=== PATIENT | male | born 1955 | race Caucasian/White ===

== ENCOUNTER 2021-01-09 06:24 | Day surgery (SDC) | payer BC ==
[~2021-01-09] VITALS: Ht 167.6 cm; Wt 68.0 kg
[~2021-01-09 06:24] MED LIST: FLUTICASONE PRO16 GM NS; LIPITOR20 MG; LIPITOR20 MG PO; QVAR7.3 G1 INH; SINGULAIR10 MG PO
--- NOTE | 2021-01-09 08:03 | NUR ---
01/09/21 0803 Pao López 0800- PT TO PACU IN LL POSITION. EYES CLOSED, OPENS EYES BRIEFLY TO VERBAL AND TACTILE STIMULI AND FALLS QUICKLY BACK TO SLEEP. BREATHING EASY AND UNLABORED. SPO2 >95% ON 3L O2 VIA NC.
--- NOTE | 2021-01-09 09:54 | OR ---
[facility] [address] [place], [place] [address] Signed DATE OF OPERATION: 01/09/2021 SURGEON: Cammie Orellana MD PREOPERATIVE DIAGNOSES: 1. Father with colon cancer, age 79. 2. Diverticulosis. POSTOPERATIVE DIAGNOSES: 1. Minimal to moderate pandiverticulosis. 2. Minimal to moderate external hemorrhoids. PROCEDURE: Colonoscopy without biopsy. ESTIMATED BLOOD LOSS: None. INDICATIONS: Jennifer is a 65-year-old gentleman, whose father was diagnosed and of metastatic colon cancer at the age of 79. Jennifer himself has been through five or six previous colonoscopies. His last colonoscopy was in 2015 with myself. We are aware that he has sigmoid diverticulosis. He currently has no lower GI complaints. No prior history of any colon cancer or colon polyps himself. He did have an enlarged prostate in 2016. In the end, he had robotic-assisted radical prostatectomy for his prostate cancer. He said he has done well since that time. In the office, I had given him pamphlets on endoscopy. He understands the nature of that test quite well. There is risk including, but not limited to gas bloating, crampy abdominal pain, bleeding, perforation requiring surgery, and missed diagnosis. He also recalls the need for IV conscious sedation. He has done well with Versed and fentanyl in the past. He had expressed understanding and wished to proceed. PROCEDURE NOTE: Jarad was taken into our endoscopy suite and placed in the left lateral decubitus position. He was given a total of 7 mg of Versed and 150 mcg of fentanyl to cover the case. A digital rectal exam was performed. He does not have minimal to moderate external hemorrhoids. He had good sphincter tone. The prostate gland was absent. No dominant nodules. There seemed to be smooth scar tissue in the prostate bed. The adult colonoscope was then introduced and advanced under direct visualization of camera. It took some extra sedation abdominal compression in order to advance the scope directly Electronically Signed By: CAMMIE ORELLANA MD 01/09/21 0954 PATIENT NAME: JENNIFER RODRIGUEZ OPERATIVE REPORT DATE OF : 55 REPORT #: [id number] PHYSICIAN: CAMMIE ORELLANA MD PCP: FARZANEH MUÑOZ DO REPORT IS CONFIDENTIAL AND NOT TO BE RELEASED WITHOUT AUTHORIZATION [facility] [address] [place], [place] [address] Signed into the cecum itself. His prep was quite excellent. He said it is much better then prep. We could easily see the appendiceal orifice and the ileocecal valve. The scope was then slowly withdrawn. We took pictures throughout for photodocumentation. On this occasion, he did have some diverticula in the right and left colon. They were minimal to moderate in size, minimal to moderate in number, and scattered about. No polyps were noted. The rectum was unremarkable. Upon retroflexion of scope, there was no additional pathology noted above the anal canal. After this, the gas was suctioned out and the colonoscope removed. Jennifer tolerated his procedure quite well. RECOMMENDATIONS: Jennifer can follow up for a repeat colonoscopy in 5 years due to his family history. Cammie Orellana MD ALB/MODL /[id number] cc: DO Cammie Chamberlain MD Copies: FARZANEH MUÑOZ ANDREW L MD ~ Electronically Signed By: CAMMIE ORELLANA MD 01/09/21 0954 PATIENT NAME: JENNIFER RODRIGUEZ OPERATIVE REPORT DATE OF : 55 REPORT #: [id number] PHYSICIAN: CAMMIE ORELLANA MD PCP: FARZANEH MUÑOZ DO REPORT IS CONFIDENTIAL AND NOT TO BE RELEASED WITHOUT AUTHORIZATION
== END 2021-01-09 08:50 | disposition home or self-care (01) ==
LOC: DS 06:24 → OPS 06:24 → DS 06:45 → OPS 08:50
PROVIDERS: ATTEND Colon & Rectal Surgery
PROC: 0DJD8ZZ Inspection of Lower Intestinal Tract, Via Natural or Artificial Opening Endoscopic (ICD-10-PCS; principal; 2021-01-09 06:45)
DX: K57.30 Diverticulosis of large intestine without perforation or abscess without bleeding (principal); K64.4 Residual hemorrhoidal skin tags; J45.909 Unspecified asthma, uncomplicated; E78.00 Pure hypercholesterolemia, unspecified; Z80.0 Family history of malignant neoplasm of digestive organs; Z91.09 Other allergy status, other than to drugs and biological substances
CPT/HCPCS: 99153; G0500; J2250; J3010

== ENCOUNTER 2023-03-28 07:50 | Day surgery (SDC) | payer BC ==
[2023-03-26 08:21] VITALS: BP 1406/65
[~2023-03-28] VITALS: Ht 167.6 cm; Wt 70.5 kg
[~2023-03-28 07:50] MED LIST changes: +MOVE FREE ULTR1 EAC2 PO; +TADALAFIL5 MG PO
[2023-03-28 07:59] VITALS: BP 111/83
--- NOTE | 2023-03-28 09:27 | NUR ---
PT ACCOMPANIED BY . BOTH IN GOOD SPIRITS. EXERCISED MINISTRY OF PRESENCE PT TALKED OF WORK. DECLINED BEDSIDE PRAYER. EXITED ROOM AND PRAYED SILENTLY FOR SUCCESSFUL PROCEDURE AND ANGEL RECOVERY.
--- NOTE | 2023-03-28 10:40 | NUR ---
03/28/23 1040 Sheets,Joyce 1029 PT ARRIVED TO PACU ON 6L VIA JAW THRUST USED TO MAINTAIN AIRWAY WITH ORAL AIRWAY IN PLACE. PT NONAROUSABLE.
--- NOTE | 2023-03-28 11:02 | OR ---
[facility] [address] [place], [place] [address] Signed DATE OF OPERATION: 03/28/2023 SURGEON: Cammie Orellana MD PREOPERATIVE DIAGNOSIS: Left occipital subcutaneous mass (2.4 x 2.5 x 0.8 cm). POSTOPERATIVE DIAGNOSIS: Left occipital subcutaneous mass (2.4 x 2.5 x 0.8 cm). PROCEDURE: Excision of left occipital subcutaneous mass. ESTIMATED BLOOD LOSS: None. 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 INDICATIONS: Jennifer is a 67-year-old gentleman asked to see me for a subcutaneous mass involving the left occipital scalp area. He said it has been there at least a year probably longer. He said it has been increasing in size. His family and coworkers have taken notice of this. He is required to be in the public with respect to his job and others in the public sector have noticed this as well. He said it is also rubbing on his hat causing some pain. He had been to his primary care provider. An ultrasound was ordered and the lesion measures 2.4 x 2.5 x 0.8 cm. To his knowledge, he has never been infected or drained. He had been asked to see me by his primary care provider. In the office, I explained to Jennifer this could be removed in the operating room with good lighting and with the help of the surgical nurse and our cautery. These do have a tendency to bleed fair amount. They always follow the contour of the occipital bone. They always end up being deeper than what people expect. He understands this will be a day surgery. He will be going home afterwards. There is risk to surgery including, but not limited to bleeding, infection, scarring, change in contour of the skin as well as other unforeseen comorbidities. He had expressed understanding and wished to proceed. DESCRIPTION OF PROCEDURE: I met with Jennifer and his in our preop area. We were all able to identify the subcutaneous mass in the left occipital scalp without difficulty. We marked that appropriately. After this, Jennifer was taken to the operating room and placed under Electronically Signed By: CAMMIE ORELLANA MD 03/28/23 1102 PATIENT NAME: JENNIFER RODRIGUEZ OPERATIVE REPORT DATE OF : 55 REPORT #: [id number] PHYSICIAN: CAMMIE ORELLANA MD PCP: FARZANEH MUÑOZ DO REPORT IS CONFIDENTIAL AND NOT TO BE RELEASED WITHOUT AUTHORIZATION [facility] [address] [place], [place] [address] Signed general LMA anesthesia. He was then appropriately padded and we rotated his head to the right. He was given preoperative antibiotics along with subcutaneous heparin. SCDs were utilized. He was then prepped and draped in the usual sterile fashion. Using a 27-gauge needle, we injected local anesthetic over underneath and around the lesion. A vertical incision was made over the lesion. We carefully went down around the lesion mainly with the cautery. It did in the long enough that had splayed out some of the muscle as well. It was very carefully dissected free. The entire lesion was thus removed en bloc. It clinically appears to be a lipoma. We injected some additional local anesthetic inferiorly. The wound was irrigated and suctioned out until clear. There was just a little gap in the muscle, so we used two interrupted 3-0 Monocryl sutures to bring that back together. We brought the skin and dermis back together with interrupted 3-0 subcuticular Monocryl sutures. The skin edges were reapproximated with a running 5-0 fast absorbing plain gut suture. No white matter dressing was applied. After this, Jennifer was awakened from his anesthesia, extubated in the OR, and taken to recovery room in stable condition. Cammie Orellana MD ALB/MODL /[id number] cc: DO Cammie Chamberlain MD Patient Chart Copies: FARZANEH MUÑOZ ANDREW L MD ~ Electronically Signed By: CAMMIE ORELLANA MD 03/28/23 1102 PATIENT NAME: JENNIFER RODRIGUEZ OPERATIVE REPORT DATE OF : 55 REPORT #: [id number] PHYSICIAN: CAMMIE ORELLANA MD PCP: FARZANEH MUÑOZ DO REPORT IS CONFIDENTIAL AND NOT TO BE RELEASED WITHOUT AUTHORIZATION
[2023-03-28 11:10] VITALS: BP 116/59
--- NOTE | 2023-03-28 11:13 | NUR ---
1110- PT ARRIVES BACK TO DAY SURGERY ROOM #7 AWAKE AND TALKING. PT REPORTS HE IS DROWSY. PT DENIES ANY PAIN OR NAUSEA. RESP EVEN AND UNLABORED. OXYGEN SAT MID 90'S ON RA. PT PROVIDED ICE WATER AND CRACKERS PER HIS REQUEST. BED IN THE LOWEST POSITION, BED RAIL UP X1, CALL LIGHT PROVIDED, PT'S AT THE BEDSIDE.
[2023-03-28] MEDS ORDERED: HYDROCODON-ACE1 EA10 PO (11:41)
--- NOTE | 2023-03-28 12:05 | NUR ---
PT AMBULATED TO THE RESTROOM AND BACK TO BED. PT ABLE TO URINATE 325 ML OF CLEAR YELLOW URINE. PT AMBULATED BACK TO HIS ROOM AND STATES HE IS READY TO GO HOME. PT DRESSING HIMSELF WITH HIS AT THE BEDSIDE. PT TOLERATING WELL.
[2023-03-28 12:11] VITALS: BP 132/82
--- NOTE | 2023-03-28 12:26 | NUR ---
1220- PT PROVIDED DC INSTRUCTIONS TO PT AND . ALL QUESTIONS ANSWERED. PRESCRIPTION GIVEN. PT AMBULATED TO THE WHEELCHAIR AND WAS TAKEN TO THE FRONT OF THE HOSPITAL. PT INTO THE PASSENGER SIDE OF THE VEHICLE. PT THANKFUL FOR HIS CARE.
--- NOTE | 2023-04-01 15:56 | PATH ---
[facility] [address] [facility] [place] [address] Signed SPECIMEN(S): A LEFT OCCIPITAL, SCALP SPECIMEN SOURCE: A. 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 JVR:smn MICROSCOPIC EXAMINATION: Histologic sections of all submitted blocks are examined by light microscopy. These findings, together with the gross examination, support the pathologic diagnosis. GROSS DESCRIPTION: The specimen, labeled and designated "Jim, Yves, " and designated on the requisition "left occipital subcutaneous mass," is received in formalin and consists of a 5 gram portion of yellow-hook adipose tissue that is 3.6 x 2.5 x 1.4 cm. The specimen is partially surfaced by a transparent membranous tissue. The tissue is inked and serially sectioned to reveal a yellow homogeneous cut surface. Framing And Hanging sections are submitted in (A1). FB (under the direct supervision of a pathologist) The Gross Description was prepared using a voice recognition system. The report was reviewed for accuracy; however, sound-alike word errors, addition and/or deletions may occur. If there is any question about this report, please contact Client Services. PERFORMING LABORATORY: Technical component was performed by [facility], [address] [place] [id number] (CLIA# [id number]). Professional interpretation was performed by [facility] - [facility], [address] [place] [id number] (CLIA#: [id number]). Diagnostician: Allen Magana MD Pathologist Electronically Signed 04/01/2023 PATIENT NAME: JENNIFER RODRIGUEZ PATHOLOGY DATE OF : 55 REPORT #: [id number] PHYSICIAN: [facility] PCP: FARZANEH MUÑOZ DO REPORT IS CONFIDENTIAL AND NOT TO BE RELEASED WITHOUT AUTHORIZATION [address] [address] Signed Copies: ~ PATIENT NAME: JENNIFER RODRIGUEZ PATHOLOGY DATE OF : 55 REPORT #: [id number] PHYSICIAN: [facility] PCP: FARZANEH MUÑOZ DO REPORT IS CONFIDENTIAL AND NOT TO BE RELEASED WITHOUT AUTHORIZATION
== END 2023-03-28 12:20 | disposition home or self-care (01) ==
LOC: DS 07:50
PROVIDERS: ATTEND Colon & Rectal Surgery
PROC: 0JB00ZZ Excision of Scalp Subcutaneous Tissue and Fascia, Open Approach (ICD-10-PCS; principal; 2023-03-28 09:05)
DX: R22.0 Localized swelling, mass and lump, head (principal); J45.20 Mild intermittent asthma, uncomplicated; E78.00 Pure hypercholesterolemia, unspecified; C61 Malignant neoplasm of prostate; E55.9 Vitamin D deficiency, unspecified
CPT/HCPCS: 00300; J0131; J0690; J1644; J1885; J2001; J2250; J2405; J2704; J3490; J7121